=== PATIENT | female | born 1975 | race American Indian/Alaskan Native ===

== ENCOUNTER 2021-05-30 13:51 | Emergency (ER) | payer BC ==
[2021-05-30 14:56] VITALS: BP 128/89
[2021-05-30 15:33] LABS: Bacteria,Urine 1+ /HPF (Negative); Bilirubin,Urine NEG (Negative); Blood,Urine SM (Negative); Color,Urine Yellow (Yellow); Mucus,Urine FEW /HPF; Protein,Urine <15 mg/dL mg/dL (Negative); Urobilinogen,Urine < 2.0 mg/dL (<2.0)
--- NOTE | 2021-05-30 17:23 | Event Note ---
ED Screening Note ED Screening Note: nephrolithiasis for one month went to urgent care did not follow up with urologist given prescription for tramadol states she has right flank pain +nausea no fever no v/d no dysuria no pmhx allergy: sulfa This initial assessment/diagnostic orders/clinical plan/treatment(s) is/are subject to change based on patients health status, clinical progression and re- assessment by fellow clinical providers in the ED. Further treatment and workup at subsequent clinical providers discretion. Patient/guardian urged not to elope from the ED as their condition may be serious if not clinically assessed and managed. Initial orders include: labs, ct
[2021-05-30 18:19] LABS: Basophils % (Auto) 0.2 % (0.0-1.8); Eosinophils # (Auto) 0.1 K/mm3 (0.0-0.4); Eosinophils % (Auto) 1.4 % (0.0-4.3); Hematocrit 40.7 % (30.3-42.9); Lymphocytes # (Auto) 2.3 K/mm3 (1.2-5.4); Lymphocytes % (Auto) 45.6 % (13.4-35.0); Mean Corpuscular HGB Conc 32 % (30-34); Mean Corpuscular Volume 92 fl (79-97); Monocytes # (Auto) 0.3 K/mm3 (0.0-0.8); Monocytes % (Auto) 6.1 % (0.0-7.3); Platelet Count 226 K/mm3 (140-440); Red Blood Count 4.43 M/mm3 (3.65-5.03); Red Cell Distribution Width 13.7 % (13.2-15.2)
[2021-05-30 18:49] LABS: Alanine Aminotransferase 50 units/L (7-56); Albumin 4.2 g/dL (3.9-5); Blood Urea Nitrogen 8 mg/dL (7-17); Calcium 9.6 mg/dL (8.4-10.2)
[2021-05-30 18:50] LABS: Hemolysis Index 8
--- NOTE | 2021-05-30 19:11 | Cat Scan Report ---
CT ABDOMEN AND PELVIS WITHOUT CONTRAST INDICATION / CLINICAL INFORMATION: right flank pain. TECHNIQUE: Axial CT images were obtained through the abdomen and pelvis without IV contrast. All CT scans at this location are performed using CT dose reduction for ALARA by means of automated exposure control. COMPARISON: None available. FINDINGS: LOWER CHEST: No significant abnormality. LIVER: No significant abnormality. GALLBLADDER: Cholecystectomy. BILE DUCTS: No significant abnormality. PANCREAS: No significant abnormality. SPLEEN: No significant abnormality. ADRENALS: No significant abnormality. RIGHT KIDNEY / URETER: No significant abnormality. LEFT KIDNEY / URETER: No significant abnormality. STOMACH / SMALL BOWEL: No significant abnormality. COLON: No significant abnormality. APPENDIX: No significant abnormality. PERITONEUM: No free fluid. No free air. No fluid collection. LYMPH NODES: No significant adenopathy. AORTA / ARTERIES: No significant abnormality. IVC / VEINS: No significant abnormality. URINARY BLADDER: No significant abnormality. REPRODUCTIVE ORGANS: There is a 3 cm cyst in the right ovary. ADDITIONAL FINDINGS: There are multiple phleboliths in the pelvis. SKELETAL SYSTEM: No significant abnormality. IMPRESSION: 1. There is a 3 cm cyst in the right ovary. The appendix is unremarkable. No renal or ureteral calcul i are seen. There is no obstruction, inflammation, or free air. Signer Name: Giovanni Taylor MD Signed: 05/30/2021 7:06 PM Workstation Name: [id number]
[2021-05-30 19:22] LABS: BUN/Creatinine Ratio 11
--- NOTE | 2021-05-30 19:32 | Emergency Department Report ---
ED General Adult HPI - General Chief complaint: Back Pain/Injury Stated complaint: KIDNEY STONE Time Seen by Provider: 05/30/21 17:22 Source: patient Mode of arrival: Ambulatory Limitations: No Limitations - History of Present Illness Initial comments: Patient is a 45-year-old female presents emergency room complaints of right flank pain that began 1 month ago. She states a month ago she was diagnosed with a nephrolithiasis and she saw urgent care at that time and states that she did have a CT completed which showed the kidney stone. She states that she did not have to follow-up with a urologist. States that she was advised she should be able to spontaneously pass on her own. She states that she was given a prescription for tramadol. Patient states that she has continued to have right flank pain and began having nausea.She denies any fever, vomiting, diarrhea, dysuria, urinary symptoms. No other past medical history. Allergy to sulfa. - Related Data Previous Rx's Medication Instructions Recorded Last Taken Type Ketorolac [Toradol] 10 mg PO Q6H PRN #8 tablet 05/30/21 Unknown Rx Ondansetron [Zofran Odt] 4 mg PO Q8HR PRN #8 tab.rapdis 05/30/21 Unknown Rx cephALEXin [Keflex] 500 mg PO BID 7 Days #14 capsule 05/30/21 Unknown Rx Allergies Allergy/AdvReac Type Severity Reaction Status Date / Time Sulfa (Sulfonamide AdvReac Hives Verified 05/30/21 14:56 Antibiotics) ED Review of Systems ROS: Stated complaint: KIDNEY STONE Other details as noted in HPI Comment: All other systems reviewed and negative ED Past Medical Hx - Past Medical History Previous Medical History?: No - Medications Home Medications: Home Medications Medication Instructions Recorded Confirmed Last Taken Type Ketorolac [Toradol] 10 mg PO Q6H PRN #8 tablet 05/30/21 Unknown Rx Ondansetron [Zofran Odt] 4 mg PO Q8HR PRN #8 tab.rapdis 05/30/21 Unknown Rx cephALEXin [Keflex] 500 mg PO BID 7 Days #14 capsule 05/30/21 Unknown Rx ED Physical Exam - General Limitations: No Limitations General appearance: alert, in no apparent distress - Head Head exam: Present: atraumatic, normocephalic - Eye Eye exam: Present: normal appearance - ENT ENT exam: Present: mucous membranes moist - Respiratory Respiratory exam: Present: normal lung sounds bilaterally. Absent: respiratory distress, wheezes, rales, rhonchi, stridor, chest wall tenderness, accessory muscle use, decreased breath sounds, prolonged expiratory - Cardiovascular Cardiovascular Exam: Present: regular rate, normal rhythm, normal heart sounds. Absent: systolic murmur, diastolic murmur, rubs, gallop - GI/Abdominal GI/Abdominal exam: Present: soft, normal bowel sounds. Absent: distended, tenderness, guarding, rebound, rigid - Back Exam Back exam: Present: CVA tenderness (R). Absent: CVA tenderness (L) - Neurological Exam Neurological exam: Present: alert, oriented X3 - Psychiatric Psychiatric exam: Present: normal affect, normal mood - Skin Skin exam: Present: warm, dry, intact ED Course Vital Signs 05/30/21 14:54 Temperature 98.8 F Pulse Rate 70 Respiratory 14 Rate Blood Pressure 128/89 [Left] O2 Sat by Pulse 100 Oximetry ED Medical Decision Making - Lab Data Result diagrams: 05/30/21 17:48 05/30/21 17:48 - Radiology Data Radiology results: report reviewed Ordering Physician: TAWNY LOYA Date of Service: 05/30/21 Procedure(s): CT abdomen pelvis wo con Accession Number(s): [id number] cc: TAWNY LOYA CT ABDOMEN AND PELVIS WITHOUT CONTRAST INDICATION / CLINICAL INFORMATION: right flank pain. TECHNIQUE: Axial CT images were obtained through the abdomen and pelvis without IV contrast. All CT scans at this location are performed using CT dose reduction for ALARA by means of automated exposure control. COMPARISON: None available. FINDINGS: LOWER CHEST: No significant abnormality. LIVER: No significant abnormality. GALLBLADDER: Cholecystectomy. BILE DUCTS: No significant abnormality. PANCREAS: No significant abnormality. SPLEEN: No significant abnormality. ADRENALS: No significant abnormality. RIGHT KIDNEY / URETER: No significant abnormality. LEFT KIDNEY / URETER: No significant abnormality. STOMACH / SMALL BOWEL: No significant abnormality. COLON: No significant abnormality. APPENDIX: No significant abnormality. PERITONEUM: No free fluid. No free air. No fluid collection. LYMPH NODES: No significant adenopathy. AORTA / ARTERIES: No significant abnormality. IVC / VEINS: No significant abnormality. URINARY BLADDER: No significant abnormality. REPRODUCTIVE ORGANS: There is a 3 cm cyst in the right ovary. ADDITIONAL FINDINGS: There are multiple phleboliths in the pelvis. SKELETAL SYSTEM: No significant abnormality. IMPRESSION: 1. There is a 3 cm cyst in the right ovary. The appendix is unremarkable. No renal or ureteral calculi are seen. There is no obstruction, inflammation, or free air. Signer Name: Giovanni Taylor MD Signed: 05/30/2021 7:06 PM Workstation Name: [id number] Transcribed By: Dictated By: Giovanni Taylor MD Electronically Authenticated By: Giovanni Taylor MD Signed Date/Time: 05/30/211905 DD/ 02 TD/TT: - Medical Decision Making Patient is a 45-year-old female presents emergency room complaints of right flank pain that began 1 month ago. She states a month ago she was diagnosed with a nephrolithiasis and she saw urgent care at that time and states that she did have a CT completed which showed the kidney stone. She states that she did not have to follow-up with a urologist. States that she was advised she should be able to spontaneously pass on her own. She states that she was given a prescription for tramadol. Patient states that she has continued to have right flank pain and began having nausea.She denies any fever, vomiting, diarrhea, dysuria, urinary symptoms. No other past medical history. Allergy to sulfa. Vitals are normal. On exam patient has right flank tenderness. Labs are stable. UA shows evidence of UTI. CT abdomen pelvis without contrast 1. There is a 3 cm cyst in the right ovary. The appendix is unremarkable. No renal or ureteral calculi are seen. There is no obstruction, inflammation, or free air. Discussed all results with patient answer questions. Patient given prescription for medications. Advised patient Please take medication as prescribed. Increase the fluid intake. Follow-up with a primary care doctor. Follow-up with urologist. Return to emergency room for any new or worsening symptoms. Follow- up with your primary care doctor or DEPARTMENTAL SECRETARY regarding the ovarian cyst. Critical care attestation.: If time is entered above; I have spent that time in minutes in the direct care of this critically ill patient, excluding procedure time. ED Disposition Clinical Impression: Flank pain, Right ovarian cyst UTI (urinary tract infection) Qualifiers: Urinary tract infection type: acute cystitis Hematuria presence: without hematuria Qualified Code(s): N30.00 - Acute cystitis without hematuria Disposition: 01 HOME / SELF CARE / HOMELESS Is pt being admited?: No Does the pt Need Aspirin: No Condition: Stable Instructions: Urinary Tract Infection, Adult, Flank Pain, Adult Additional Instructions: Please take medication as prescribed. Increase the fluid intake. Follow-up with a primary care doctor. Follow-up with urologist. Return to emergency room for any new or worsening symptoms. Follow-up with your primary care doctor or DEPARTMENTAL SECRETARY regarding the ovarian cyst. Prescriptions: cephALEXin [Keflex] 500 mg PO BID 7 Days #14 capsule Ketorolac [Toradol] 10 mg PO Q6H PRN #8 tablet PRN Reason: Pain Ondansetron [Zofran Odt] 4 mg PO Q8HR PRN #8 tab.rapdis PRN Reason: nausea/vomiting Referrals: ELOY CARTER MD [Staff Physician] - 3-5 Days [facility] [Provider Group] - 3-5 Days CASSIDY BRUSH MD [Staff Physician] - 3-5 Days Time of Disposition: 19:31 Print Language: ICELANDIC
== END 2021-05-30 19:39 | disposition home or self-care (01) ==
LOC: ED 13:51
DX: N39.0 Urinary tract infection, site not specified (principal); N83.201 Unspecified ovarian cyst, right side; R10.9 Unspecified abdominal pain; Z88.2 Allergy status to sulfonamides
CPT/HCPCS: 36415; 74176; 80053; 81001; 84703; 85025; 87086; 99284